=== PATIENT | male | born 1950 | race Asian ===

== ENCOUNTER 2018-04-28 08:32 | Day surgery (SDC) | payer BC, OTHER ==
[2018-04-28] MEDS ORDERED: NA CHLORIDE 0.9% 1,000 ML ONE (08:55)
[2018-04-28 09:04] LABS: Absolute Lymphocytes (CBC) 1.2 K/uL (0.7-4.9); Absolute Monocytes 0.4 K/uL (0.1-1.3); Absolute Neutrophil 2.3 K/uL (1.8-8.0); Basophils % 1.2 % (0-1.3); Eosinophils % 2.2 % (0-4.4); Hematocrit 41.1 % (39.6-49.0); Lymphocytes % 29.2 % (15.3-44.8); Monocytes % 9.4 % (3.3-12.3); RBC Red Blood Cell Count 4.31 M/uL (4.33-5.43)
--- NOTE | 2018-04-28 09:33 | EKG ---
Test Date: 2018-04-28 Test Time: 08:48:08 Casting Room Operator: TONNY MEASUREMENT RESULTS: Intervals: Rate: 58 MO: 152 QRSD: 96 QT: 400 QTc: 392 [place]: P: 65 MO: 152 QRS: 63 T: 48 INTERPRETIVE STATEMENTS: Sinus bradycardia Otherwise normal ECG Compared to ECG 05/30/2009 07:48:27 Sinus rhythm no longer present Electronically Signed On 04-28-18 09:32:58 [employer] WORK[employer] by Gavin Chandler
[2018-04-28] MEDS ORDERED: PROPOFOL 200 MG/20 ML VIAL IV ONE (09:36)
[2018-04-28] MEDS ORDERED: LIDOCAINE 1% MPF 5 ML VIAL ONE (09:36)
--- NOTE | 2018-04-28 10:10 | ENDO RPT ---
[address], [address] COLONOSCOPY PROCEDURE REPORT EXAM DATE: 04/28/2018 PATIENT NAME: Jared Parry MR #: [id number] BIRTHDATE: 1950 ATTENDING: Karthik Purvis M.D. STATUS: outpatient [facility] OPERATOR: Marbella Wolf, Sharmila Wolf, and Marleny Pretty RN INDICATIONS: The patient is a 67 yr old Male here for a colonoscopy due to colon cancer screening PROCEDURE PERFORMED: Screening Colonoscopy MEDICATIONS: Per Anesthesia. ESTIMATED BLOOD LOSS: None CONSENT: The patient understands the risks and benefits of the procedure and understands that these risks include, but are not limited to: sedation, allergic reaction, infection, perforation and/or bleeding. Alternative means of evaluation and treatment include, among others: physical exam, x-rays, and/or surgical intervention. The patient elects to proceed with this endoscopic procedure. DESCRIPTION OF PROCEDURE: During intra-op preparation period all mechanical medical equipment was checked for proper function. Hand hygiene and appropriate measures for infection prevention was taken. Procedure, possible complications, alternatives including, but not limited to possibility of bleeding, perforation, tear, infection, sepsis, need for surgery, need for blood transfusion, were explained to the patient. After the risks, benefits and alternatives of the procedure were thoroughly explained, Informed consent was verified, confirmed and timeout was successfully executed by the treatment team. The patient was placed in the left lateral position. A digital rectal exam was performed and revealed an enlarged prostate. After appropriate level of anesthesia, the scope was passed. The EC-[id number] ([id number]) endoscope was introduced through the anus and advanced to the cecum, which was identified by the ileocecal valve. The quality of the prep was good. The instrument was then slowly withdrawn as the colon was fully examined. Scope withdrawal time was 25 minutes. COLON FINDINGS: Mild diverticulosis was noted in the sigmoid colon. Retroflexed views revealed no abnormalities and Retroflexed views revealed no abnormalities. The scope was then completely withdrawn from the patient and the procedure terminated. ADVERSE EVENTS: There were no complications. IMPRESSIONS: Mild diverticulosis was noted in the sigmoid colon RECOMMENDATIONS: 1. fiber rich diet 2. increase dietary water 3. no seeds in diet 4. Metamucil RECALL: Return in 10 year(s) for Colonoscopy. Karthik Purvis M.D. eSigned: Karthik Purvis M.D. 04/28/2018 10:09 AM cc: CPT CODES: ICD9 CODES: 600.0 Hypertrophy (benign) of prostate PATIENT NAME: Jared ParryRicardo MR#: [id number]
--- NOTE | 2018-04-28 10:14 | RAD REPORT ---
EXAM DESCRIPTION: RAD - Chest Pa And Lat (2 Views) - 04/28/2018 9:16 am CLINICAL HISTORY: Preop chest, pending colonoscopy COMPARISON: May 2009 TECHNIQUE: PA and lateral views of the chest were obtained. FINDINGS: The lungs are normal volume. Patient has an interstitial lung pattern that has increased o ricci this long interval. Focal infiltrate is not suspected. Acute failure or volume overload are doubt ful. Heart size is normal and central vasculature is within normal limits. No pleural effusion or pneumothorax seen. No acute bony finding noted. No aortic abnormality. IMPRESSION: Mild fibrotic lung pattern progressive from 2009. No acute cardiopulmonary finding.
== END 2018-04-28 10:52 | disposition home or self-care (01) ==
LOC: OR 08:32
PROVIDERS: ATTEND Surgery
PROC: 0DJD8ZZ Inspection of Lower Intestinal Tract, Via Natural or Artificial Opening Endoscopic (ICD-10-PCS; principal; 2018-04-28 10:00)
DX: Z12.11 Encounter for screening for malignant neoplasm of colon (principal); K57.30 Diverticulosis of large intestine without perforation or abscess without bleeding; E11.9 Type 2 diabetes mellitus without complications
CPT/HCPCS: 36415; 71046; 80048; 85025; 93005; J2704; J7030

== ENCOUNTER 2018-05-16 16:11 | Emergency (ER) | payer OTHER, BC ==
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
== END 2018-05-16 19:43 | disposition home or self-care (01) ==
LOC: ER 16:11
DX: M54.2 Cervicalgia (principal); M54.89 Other dorsalgia; V43.52XA Car driver injured in collision with other type car in traffic accident, initial encounter; I10 Essential (primary) hypertension; E78.5 Hyperlipidemia, unspecified; E11.9 Type 2 diabetes mellitus without complications; Z79.82 Long term (current) use of aspirin
CPT/HCPCS: 72125; 72128; 99284

== ENCOUNTER 2019-05-03 11:56 | Emergency (ER) | payer OTHER ==
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
[2019-05-03 14:06] VITALS: BP 120/52; TEMP 97.1; O2SAT 100
== END 2019-05-03 14:00 | disposition home or self-care (01) ==
LOC: ER 11:56
DX: M54.2 Cervicalgia (principal); V49.49XA Driver injured in collision with other motor vehicles in traffic accident, initial encounter; I10 Essential (primary) hypertension; E11.9 Type 2 diabetes mellitus without complications; E78.5 Hyperlipidemia, unspecified; Z79.82 Long term (current) use of aspirin; Z79.4 Long term (current) use of insulin
CPT/HCPCS: 70450; 72125; 99283